=== PATIENT | female | born 1945 ===

== ENCOUNTER 2018-05-13 15:39 | Emergency (ER) | payer MEDICARE ==
[2018-05-13 15:49] VITALS: BMI 27.3
[2018-05-13] MEDS ORDERED: TDAP Vaccine 0.5 mL Syr IM ONE (16:06)
--- NOTE | 2018-05-13 16:16 | ED PDOC ---
Arrival/HPI - General Chief Complaint: Trauma Time Seen by Provider: 05/13/18 16:05 Historian: Patient - History of Present Illness Narrative History of Present Illness (Text): 72 year old female presents to Emergency Department for evaluation of a right forehead laceration and right hand abrasions s/p mechanical injury. Patient states she tripped and fell on the street. PMHx: diabetes and high blood pressure. States she takes baby Aspirin. Denies LOC, vomiting, nausea, fever, and other associated symptoms. 05/13/18 16:14 Time/Duration: Prior to Arrival Past Medical History - Provider Review Nursing Documentation Reviewed: Yes - Tetanus Immunization Tetanus Immunization: >10 years Ago - Cardiac Hx Hypertension: Yes - Pulmonary Hx Respiratory Disorders: No - Neurological Hx Neurological Disorder: No - HEENT Hx HEENT Disorder: No - Renal Hx Renal Disorder: No - Endocrine/Metabolic Hx Diabetes Mellitus Type 2: Yes - Hematological/Oncological Hx Blood Disorders: No - Integumentary Hx Dermatological Disorder: No - Musculoskeletal/Rheumatological Hx Musculoskeletal Disorders: Yes Hx Falls: Yes Hx Fractures: Yes - Gastrointestinal Hx Gastrointestinal Disorders: No - Genitourinary/Gynecological Hx Genitourinary Disorders: No - Psychiatric Hx Psychophysiologic Disorder: No Hx Substance Use: No Family/Social History - Physician Review Nursing Documentation Reviewed: Yes Family/Social History: Diabetes, Hypertension Smoking Status: Never Smoked Hx Alcohol Use: No Hx Substance Use: No Allergies/Home Meds Allergies/Adverse Reactions: Allergies moxifloxacin HCl [From Avelox] Allergy (Verified 05/13/18 15:47) ANAPHYLAXIS Home Medications: Home Meds Medication Instructions Recorded Confirmed Simvastatin [Zocor] 04/25/16 amLODIPine [Norvasc] 04/25/16 metFORMIN [glucOPHAGE] 04/25/16 Review of Systems - Review of Systems Constitutional: Fevers, Other (right-sided lacertion to the forehead ) Eyes: Normal Musculoskeletal: Other (right hand abrasions ) Neurological: Normal Physical Exam Vital Signs Temp Pulse Resp BP Pulse Ox 05/13/18 17:16 98 F 77 19 149/78 96 05/13/18 15:47 98.0 F Temperature: Afebrile Blood Pressure: Normal Pulse: Regular Respiratory Rate: Normal Appearance: Positive for: Non-Toxic Mental Status: Positive for: Alert and Oriented X 3 - Systems Exam Head: Present: Atraumatic, Normocephalic, Laceration (2 cm right-sided laceration to the forehead) Pupils: Present: PERRL Extroacular Muscles: Present: EOMI Conjunctiva: Present: Normal Mouth: Present: Moist Mucous Membranes Neck: Present: Normal Range of Motion. No: MIDLINE TENDERNESS, Paraspinal Tenderness Cardiovascular: Present: Regular Rate and Rhythm Upper Extremity: Present: Normal ROM (x2), Capillary Refill < 2s, Other (no snuff box tenderness bilaterally ) Lower Extremity: Present: Normal ROM (x2), Capillary Refill < 2 s Neurological: Present: GCS=15, CN II-XII Intact, Speech Normal Skin: Present: Warm, Dry Psychiatric: Present: Alert, Oriented x 3, Normal Insight, Normal Concentration Medical Decision Making ED Course and Treatment: Plan: --CT Head w/o contrast --X-ray right wrist --Tetanus Vaccine --Semmes catalan: right-sided 2 cm laceration to the forehead 05/13/18 17:17 Notified by RN that patient was short of breath and dizzy after going to bathroom. I went to re-evaluate patient, she is laying in stretcher in no distress. States she was not dizzy just with blurry vision because she does not have her glasses on. She states she was short of breath because of the walk to the bathroom, which she states is her baseline shortness of breath with a walk of that length. 05/13/18 17:19 IMPRESSION: Right supraorbital and frontotemporal scalp contusion with scalp laceration. No acute intracranial hemorrhage. Suspect minimal chronic periventricular white matter ischemic changes. 05/13/18 17:40 WRIST XR IMPRESSION: No acute fracture or dislocation. - RAD Interpretation Radiology Orders: 05/13/18 16:06 HEAD W/O CONTRAST [CT] Stat WRIST, RIGHT 3 VIEWS [RAD] Stat - Medication Orders Current Medication Orders: Discontinued Medications Tetanus/Reduced Diphtheria/Acell Pertussis (Boostrix Vaccine Inj) 0.5 ml IM .ONCE ONE Stop: 05/13/18 16:07 Last Admin: 05/13/18 17:36 Dose: 0.5 ml Immunization Registry Document 05/13/18 17:36 OCS (Rec: 05/13/18 17:36 OCS [id number]) Immunization Registry Consent Date 09/28/17 Procedure: Wound Repair - Time Performed Time Performed: 17:18 - Time Out Time Out: Side verified, Site verified, Patient ID confirmed, Sterile procedures obs. - Consent Obtained Consent obtained: Verbal - Performed by Performed by: Attending Physician - Indications Indication(s):: Laceration - Location Dimensions Length cm: 2 Depth:: Epidermis - Debris Debris:: None - Wound repair method Cassandra:: Tissue glue - Patient tolerated procedure Patient Tolerated Procedure:: Well - Scribe Statement The provider has reviewed the documentation as recorded by the Scribe (Jaye Edmond) Provider Attestation: All medical record entries made by the Scribe were at my direction and personally dictated by me. I have reviewed the chart and agree that the record accurately reflects my personal performance of the history, physical exam, medical decision making, and the department course for this patient. I have also personally directed, reviewed, and agree with the discharge instructions and disposition. Disposition/Present on Arrival - Present on Arrival Any Indicators Present on Arrival: No History of DVT/PE: No History of Uncontrolled Diabetes: No Urinary Catheter: No History of Decub. Ulcer: No History Surgical Site Infection Following: None - Disposition Have Diagnosis and Disposition been Completed?: Yes Diagnosis: Laceration, Abrasion Disposition: HOME/ ROUTINE Disposition Time: 17:39 Patient Plan: Discharge Condition: STABLE Discharge Instructions (ExitCare): Skin Abrasions, Laceration Repair With Glue (DC) Referrals: Mariya Brewer MD [Primary Care Provider] - Follow up with primary Forms: [email or web address] ([place])
--- NOTE | 2018-05-13 17:16 | CT ---
Date of service: 05/13/2018 PROCEDURE: CT HEAD WITHOUT CONTRAST. HISTORY: Status post fall, headstrike COMPARISON: None available. TECHNIQUE: Axial computed tomography images were obtained through the head/brain without intravenous contrast. Radiation dose: Total exam DLP = 717.94 mGy-cm. This CT exam was performed using one or more of the following dose reduction techniques: Automated exposure control, adjustment of the mA and/or kV according to patient size, and/or use of iterative reconstruction technique. FINDINGS: HEMORRHAGE: No acute, subarachnoid or extra-axial hemorrhage. BRAIN: Suspect very minimal chronic periventricular white matter ischemic changes. No obvious parenchymal nor extra-axial mass or collection seen on this noncontrast study.. Mild localized superior frontal cortical atrophic changes. Minimal vascular calcifications both carotid siphons VENTRICLES: No obstructive hydrocephalus. CALVARIUM: Calvarium intact however there is mild scalp contusional changes extending from the right supraorbital superiorly into the right frontotemporal scalp. Few tiny subcutaneous bubbles of air consistent with overlying scalp laceration as well. PARANASAL SINUSES: Minimal mucosal thickening noted within the right chamber sphenoid sinus. MASTOID AIR CELLS: Unremarkable as visualized. No inflammatory changes. OTHER FINDINGS: None. IMPRESSION: Right supraorbital and frontotemporal scalp contusion with scalp laceration. No acute intracranial hemorrhage. Suspect minimal chronic periventricular white matter ischemic changes.
[2018-05-13 17:17] VITALS: BP 149/78; PULSE 77; RESP 19; O2SAT 96
--- NOTE | 2018-05-13 17:37 | RAD ---
Date of service: 05/13/2018 PROCEDURE: Right Wrist Radiographs. HISTORY: fall, wrist pain COMPARISON: None. FINDINGS: BONES: There is periarticular bone demineralization. Bone alignment is normal. No acute displaced fracture or bone destruction. JOINTS: Normal. No dislocation. SOFT TISSUES: Normal. OTHER FINDINGS: None. IMPRESSION: No acute fracture or dislocation.
[2018-05-13 19:17] VITALS: TEMP 98
== END 2018-05-13 18:50 | disposition home or self-care (01) ==
LOC: ED 15:39
DX: S01.81XA Laceration without foreign body of other part of head, initial encounter (principal); W01.0XXA Fall on same level from slipping, tripping and stumbling without subsequent striking against object, initial encounter; Y92.410 Unspecified street and highway as the place of occurrence of the external cause; E11.9 Type 2 diabetes mellitus without complications; I10 Essential (primary) hypertension; Z23 Encounter for immunization